=== PATIENT | female | born 1935 | race Caucasian/White ===

== ENCOUNTER 2017-07-27 06:36 | Day surgery (SDC) | payer OTHER ==
[2017-07-26 14:54] VITALS: BMI 27.8
[2017-07-27 07:32] VITALS: TEMP 99.1
[2017-07-27] MEDS ORDERED: SUCCINYLCHOLINE CHLORIDE 200 MG/10 ML VIAL ONE (07:55)
[2017-07-27] MEDS ORDERED: LIDOCAINE HCL/PF 2% SDV 5ML VIAL ONE (07:55)
[2017-07-27] MEDS ORDERED: PROPOFOL 20 ML ONE ×3 (07:55)
[2017-07-27 10:25] VITALS: BP 132/60; PULSE 89
== END 2017-07-27 10:00 | disposition home or self-care (01) ==
LOC: JASU-ENDO 06:36
PROVIDERS: ATTEND Internal Medicine Gastroenterology
PROC: 0DBL8ZX Excision of Transverse Colon, Via Natural or Artificial Opening Endoscopic, Diagnostic (ICD-10-PCS; 2017-07-27)
PROC: 0DBK8ZX Excision of Ascending Colon, Via Natural or Artificial Opening Endoscopic, Diagnostic (ICD-10-PCS; principal; 2017-07-27 08:00)
DX: Z12.11 Encounter for screening for malignant neoplasm of colon (principal); Z80.0 Family history of malignant neoplasm of digestive organs; K57.30 Diverticulosis of large intestine without perforation or abscess without bleeding; D12.2 Benign neoplasm of ascending colon; D12.3 Benign neoplasm of transverse colon
CPT/HCPCS: 88305-TC

== ENCOUNTER 2021-06-15 20:37 | Inpatient (IN) | payer OTHER ==
[2021-06-15 20:47] VITALS: BMI 23.4
[2021-06-15 21:55] LABS: BASO % 0.3 % (0-2.0); EOS % 1.7 % (0-4.5); HEMATOCRIT 37.8 % (32.4-45.2); HEMOGLOBIN 12.6 GM/dL (10.7-15.3); LYMPH % 23.7 % (8-40); MCH 28.5 pg (25.7-33.7); MCHC 33.5 g/dl (32.0-36.0); MEAN CELL VOLUME 85.3 fl (80-96); MEAN PLT VOLUME 7.5 fl (7.5-11.1); MONO % 7.3 % (3.8-10.2); PLATELET COUNT 352 10^3/uL (134-434); RBC 4.43 M/mm3 (3.60-5.2); RDW 13.6 % (11.6-15.6); WHITE BLOOD COUNT 9.2 K/mm3 (4.0-10.0)
[2021-06-15 22:15] LABS: CHLORIDE 102 mmol/L (98-107); SODIUM 137 mmol/L (136-145)
[2021-06-15 22:17] LABS: CALCIUM 9.5 mg/dL (8.5-10.1)
[2021-06-15 22:18] LABS: ALBUMIN 3.7 g/dl (3.4-5.0); ANION GAP 6 MMOL/L (8-16); BLOOD UREA NITROGEN 22.2 mg/dL (7-18); CO2 28 mmol/L (21-32); GLUCOSE,RANDOM 146 mg/dL (74-106)
[2021-06-15 22:21] LABS: CREATININE 0.9 mg/dL (0.55-1.3); SGPT/ALT 24 U/L (13-61)
[2021-06-15 22:23] LABS: BILIRUBIN,TOTAL 0.3 mg/dL (0.2-1); TOT PROT 7.5 g/dl (6.4-8.2)
[2021-06-15 22:24] LABS: ALK PHOS 102 U/L (45-117)
[2021-06-15 22:26] LABS: URINE APPEARANCE CLEAR; URINE BILIRUBIN NEGATIVE (NEGATIVE); URINE COLOR YELLOW; URINE GLUCOSE (UA) NEGATIVE (NEGATIVE); URINE KETONE NEGATIVE (NEGATIVE); URINE LEUK ESTERASE NEGATIVE (NEGATIVE); URINE NITRITE NEGATIVE (NEGATIVE); URINE PROTEIN NEGATIVE (NEGATIVE); URINE UROBILINOGEN 0.2 mg/dL (0.2-1.0)
[2021-06-15 22:49] LABS: SGOT/AST 21 U/L (15-37)
[2021-06-16] MEDS ORDERED: ACETAMINOPHEN 325 MG TABLET (FP) PO PRN (05:38)
[2021-06-16] MEDS ORDERED: MECLIZINE HCL 12.5 MG TABLET PO PRN (05:44)
[2021-06-16] MEDS ORDERED: FUROSEMIDE 40 MG TABLET (FP) PO SCH (10:00)
[2021-06-16] MEDS ORDERED: ASPIRIN COATED 81 MG TABLET.EC PO SCH (10:00)
[2021-06-16 10:27] LABS: HEMATOCRIT 37.9 % (32.4-45.2); HEMOGLOBIN 12.9 GM/dL (10.7-15.3); MCH 28.9 pg (25.7-33.7); MCHC 34.2 g/dl (32.0-36.0); MEAN CELL VOLUME 84.4 fl (80-96); MEAN PLT VOLUME 7.7 fl (7.5-11.1); PLATELET COUNT 372 10^3/uL (134-434); RBC 4.48 M/mm3 (3.60-5.2); RDW 13.8 % (11.6-15.6); WHITE BLOOD COUNT 9.1 K/mm3 (4.0-10.0)
[2021-06-16 10:48] LABS: CHLORIDE 100 mmol/L (98-107); SODIUM 134 mmol/L (136-145)
[2021-06-16 10:52] LABS: ANION GAP 8 MMOL/L (8-16); CALCIUM 9.4 mg/dL (8.5-10.1); CO2 25 mmol/L (21-32)
[2021-06-16 10:53] LABS: BLOOD UREA NITROGEN 14.4 mg/dL (7-18); GLUCOSE,RANDOM 276 mg/dL (74-106); MAGNESIUM 2.2 mg/dL (1.8-2.4)
[2021-06-16 10:56] LABS: CHOLESTEROL 223 mg/dL (50-200); CREATININE 0.7 mg/dL (0.55-1.3); PHOSPHOROUS 3.4 mg/dL (2.5-4.9); TRIGLYCERIDES 233 mg/dL (0-150)
[2021-06-16 10:57] LABS: LDL CHOLESTEROL (ONLY SJRH) 116 mg/dL (5-100)
[2021-06-16 10:59] LABS: HDL CHOLESTEROL 58 mg/dL (40-60)
[2021-06-16] MEDS: VALSARTAN 160 MG TABLET PO SCH (11:00)
[2021-06-16] MEDS: CHOLECALCIFEROL (VIT D3) 1,000 UNIT (25 MCG) TABLET PO SCH (11:01)
[2021-06-16] MEDS: ATENOLOL 25 MG TABLET (FP) PO SCH (11:01)
[2021-06-16] MEDS: POTASSIUM CHLORIDE TABS 20 MEQ TABLET.ER (FP) PO SCH (11:01)
[2021-06-16] MEDS: amLODIPine BESYLATE 5 MG TABLET (FP) PO SCH (11:02)
[2021-06-16] MEDS: ASPIRIN COATED 81 MG TABLET.EC PO SCH (11:02)
[2021-06-16] MEDS: ENOXAPARIN NA (PORCINE) 40 MG/0.4 ML DISP.SYRIN SQ SCH (11:04)
[2021-06-16] MEDS: INSULIN SLIDING SCALE (NOVOLOG) 1 VIAL SQ SCH ×4 (11:11→21:01)
[2021-06-16] MEDS ORDERED: INSULIN (NOVOLOG) ASPART 100 UNITS/ML 10ML VIAL ONE (20:44)
[2021-06-16] MEDS ORDERED: ATORVASTATIN CA 40 MG TABLET (FP) PO SCH (22:00)
[2021-06-17] MEDS: INSULIN SLIDING SCALE (NOVOLOG) 1 VIAL SQ SCH ×3 (06:15→17:28)
[2021-06-17] MEDS: ATENOLOL 25 MG TABLET (FP) PO SCH (09:32)
[2021-06-17] MEDS: POTASSIUM CHLORIDE TABS 20 MEQ TABLET.ER (FP) PO SCH (09:32)
[2021-06-17] MEDS: VALSARTAN 160 MG TABLET PO SCH (09:32)
[2021-06-17] MEDS: ASPIRIN COATED 81 MG TABLET.EC PO SCH (09:32)
[2021-06-17] MEDS: CHOLECALCIFEROL (VIT D3) 1,000 UNIT (25 MCG) TABLET PO SCH (09:32)
[2021-06-17] MEDS: amLODIPine BESYLATE 5 MG TABLET (FP) PO SCH (09:32)
[2021-06-17] MEDS: ENOXAPARIN NA (PORCINE) 40 MG/0.4 ML DISP.SYRIN SQ SCH (09:33)
[2021-06-17] MEDS ORDERED: FUROSEMIDE 20 MG TABLET (FP) PO SCH (10:00)
[2021-06-17] MEDS ORDERED: metFORMIN HCL 500 MG TABLET (FP) PO SCH (16:30)
[2021-06-17 18:26] VITALS: BP 148/68; PULSE 91; TEMP 98
== END 2021-06-17 19:12 | disposition home or self-care (01) | DRG 149 ==
LOC: JER 20:37 → JERBED 06-16 00:27 → OBSVTOIN 06-16 05:38 → J4W 06-16 09:04
PROVIDERS: ADMIT Internal Medicine; ATTEND Internal Medicine
DX: H81.10 Benign paroxysmal vertigo, unspecified ear (principal); G20 Parkinson's disease; I10 Essential (primary) hypertension; E11.9 Type 2 diabetes mellitus without complications; E78.5 Hyperlipidemia, unspecified; I45.10 Unspecified right bundle-branch block; E78.1 Pure hyperglyceridemia
CPT/HCPCS: 36415; 70450-TC; 70551-TC; 71046-TC-FY; 80048; 80053; 80061; 81003; 82550; 82607; 82962; 83735; 84100; 84484; 85025; 85027; 87086; 93005; 93010; 93306-TC; 97116-GP; 97161-GP; 99285-25; C9803; G0378; U0003; U0005